=== PATIENT | female | born 1960 | race Caucasian/White ===

== ENCOUNTER → 2017-07-20 | Outpatient (CLI) | payer OTHER ==
[~2017-07-20] MED LIST: CIPRO; HYDROCODONE-AP1 EAC1
--- NOTE | 2017-07-28 15:47 | Diagnostic Imaging Report ---
#[id number] - MGSCRBIL #BILATERAL DIGITAL SCREENING MAMMOGRAM WITH CAD: 07/20/2017 CLINICAL: Routine screening. No prior exams were available for comparison. Current study contains 4 films. The tissue of both breasts is predominantly fatty. Current study was also evaluated with a Computer Aided Detection (CAD) system. There is an oval mass in the left breast at 7 o'clock anterior depth. There also is a possible mass in the left breast anterior depth medial region seen on the craniocaudal view only. No other significant masses, calcifications, or other findings are seen in either breast. IMPRESSION: INCOMPLETE: NEEDS ADDITIONAL IMAGING EVALUATION The oval mass in the left breast at 7 o'clock anterior depth resembles a lymph node but is indeterminate. The possible mass in the left breast anterior depth medial region seen on the craniocaudal view only is indeterminate. Focal spot compression and possible ultrasound is recommended. If old films become available then additional studies may not be necessary. The patient will be contacted by the Mammography Department to schedule this appointment. Tj Qureshi Jr., D.O. cw/:07/28/2017 14:23:17 Natural Science Manager: Angle RANDALL)(M), [facility] letter sent: Additional Imaging Needed Mammogram BI-RADS: 0 Indeterminate
== END ==
LOC: MAMMO 13:53
PROVIDERS: ATTEND Internal Medicine
DX: Z12.31 Encounter for screening mammogram for malignant neoplasm of breast (principal)
CPT/HCPCS: G0202

== ENCOUNTER → 2017-08-07 | Outpatient (CLI) | payer OTHER ==
--- NOTE | 2017-08-07 15:43 | Diagnostic Imaging Report ---
#[id number] - USBRELIMLT ULTRASOUND OF THE LEFT BREAST : 08/07/2017 Comparison is made to exams dated: 08/07/2017 mammogram and 07/20/2017 mammogram - [facility]. Color flow and real-time ultrasound were performed on the left breast medial aspect by the Tower Erector Helper and the Radiologist. No cystic or solid mass is identified. Likely the finding on the mammogram is a benign density such as a lymph node that is not detectable with the ultrasound study. IMPRESSION: BENIGN There is no sonographic evidence of malignancy. A 1 year screening mammogram is recommended. Tj Qureshi Jr., D.O. cw/:08/07/2017 14:52:37 Executive Account Manager: YONY MEDRANO, [facility] letter sent: Normal Exam Ultrasound BI-RADS: 2 Benign
--- NOTE | 2017-08-07 15:43 | Diagnostic Imaging Report ---
#[id number] - MGDXLT #UNILATERAL LEFT DIGITAL DIAGNOSTIC MAMMOGRAM WITH SPOT COMPRESSION: 08/07/2017 Comparison is made to exam dated: 07/20/2017 mammogram - [facility]. Current study contains 4 films. The tissue of the left breast is predominantly fatty. A faint oblong density persists in the rochelle areolar region with focal spot compression. Additional evaluation with a left breast ultrasound is recommended and will be performed today. No significant masses, calcifications or other findings are seen in the breast. IMPRESSION: INCOMPLETE: NEEDS ADDITIONAL IMAGING EVALUATION Indeterminate left breast oblong density requires additional evaluation and ultrasound will be performed today. Tj Qureshi Jr., D.O. cw/:08/07/2017 14:49:06 Conveyor Line Bakery Worker: Angle MEDRANO([place])(M), [facility] letter sent: Additional Imaging Needed Mammogram BI-RADS: 0 Indeterminate
== END ==
LOC: MAMMO 12:30
PROVIDERS: ATTEND Internal Medicine
DX: N63.20 Unspecified lump in the left breast, unspecified quadrant (principal)